=== PATIENT | female | born 1975 | race Caucasian/White ===

== ENCOUNTER 2016-07-01 10:36 | Emergency (ER) | payer OTHER ==
[~2016-07-01] VITALS: Ht 167.6 cm; Wt 91.0 kg
[2016-07-01] MEDS ORDERED: SODIUM CHLORIDE FLUSH 10 ML SYR IV PRN (11:10)
[2016-07-01] MEDS ORDERED: SODIUM CHLORIDE FLUSH 3 ML SYR IV PRN (11:10)
[2016-07-01] MEDS ORDERED: ASPIRIN 81 MG CHEW (CHILDREN'S ASA) PO ONE (11:10)
[2016-07-01] MEDS: NITROGLYCERIN SUBLINGUAL 0.4 MG (NITROQUICK) TABLET SL PRN ×2 (11:13→11:37)
[2016-07-01 11:17] LABS: BASOPHILS % (AUTO) 1 % (0-2); EOSINOPHILS # (AUTO) 0.1 10^3uL; EOSINOPHILS % (AUTO) 1 % (0-4); LYMPHOCYTES # (AUTO) 3.1 X10^3; MEAN CORPUSCULAR VOLUME 90 FL (80-100); MEAN PLATELET VOLUME 10.1 FL (6.0-9.5); MONOCYTES # (AUTO) 0.7 X10^3; MONOCYTES % (AUTO) 6 % (3-11); NEUTROPHILS % (AUTO) 64 % (51-67); PLATELET COUNT 247 10^3uL (150-450); WHITE BLOOD COUNT 10.95 10^3uL (4.0-11.0)
[2016-07-01 11:21] LABS: MEAN CORPUSCULAR HEMOGLOBIN 31.7 PG (26.0-34.0)
[2016-07-01 11:30] LABS: ALBUMIN 4.2 g/dL (3.4-5.0); ALKALINE PHOSPHATASE 76 U/L (38-126); ANION GAP 11.6 MEQ/L (3-15); BUN/CREATININE RATIO 14 (10-20); CALCULATED IONIZED CALCIUM 4.4 mg/dL (3.8-4.6); TOTAL PROTEIN 7.2 g/dL (6.4-8.5)
--- NOTE | 2016-07-01 11:34 | NUR ---
Pt states 6/10 chest pain. MD notified.
[2016-07-01] MEDS ORDERED: NS IV 500 ML 500 ML ONE (11:44)
[2016-07-01] MEDS ORDERED: NS IV 500 ML 500 ML IV SCH (11:45)
--- NOTE | 2016-07-01 11:53 | NUR ---
1138 nitro given 1142 bp 99/62, fluid bolus 500ml started
--- NOTE | 2016-07-01 11:58 | NUR ---
Nitro given. BP 108/55, wanted final dose of nitro. pain 06/16.
[2016-07-01] MEDS ORDERED: GI COCKTAIL 55 ML UDC PO ONE (12:40)
[2016-07-01] MEDS ORDERED: BELLADONNA/PHENOBARBITAL ELIXIR (DONNATAL) 10 ML UDC ONE (12:48)
[2016-07-01] MEDS ORDERED: MAG HYDROX/AL HYDROX/SIMETH 400-400-40/5 ML (MAG-AL PLUS XS) 30 ML UDC ONE (12:48)
[2016-07-01] MEDS ORDERED: LIDOCAINE 2% VISCOUS 20ML UDC PO ONE (12:48)
[2016-07-01 14:26] VITALS: BP 91/59
== END 2016-07-01 14:27 | disposition home or self-care (01) ==
LOC: ED 10:38
DX: R07.9 Chest pain, unspecified (principal); R10.13 Epigastric pain
CPT/HCPCS: 36415; 71010; 80053; 84484; 85025; 85610; 85730; 93005; 99285; J7040; 93010; 96360; 99284

== ENCOUNTER 2016-07-05 12:15 | Emergency (ER) | payer OTHER ==
[~2016-07-05] VITALS: Ht 167.6 cm; Wt 91.0 kg
--- OUTSIDE RECORDS SUMMARY | 2016-07-05 12:18 | XMS REPORT | Continuity of Care Document ---
Author Author [facility] Address Unknown Phone Unavailable Care Team Providers Care Home Sales Service Professional Name Role Phone CAMERON RICE PCP [phone] Insurance Providers Payer Name Policy Number Subscriber Name Relationship [employer] [id number] Cristal Gu 18 Self / Same As Patient Advance Directives Directive Response Recorded Date/Time Advanced Directives No 07/01/16 10:44am Chief Complaint and Reason for Visit Chief Complaint Cardiac Complaint Reason for Visit Dyspepsia Chest discomfort Problems Active Problems Medical Problem Onset Date Status Chest discomfort Unknown Acute Diarrhea ~02/01/2015 Acute Dyspepsia Unknown Acute Injury of toe ~12/07/2013 Acute Ovarian cyst Unknown Acute Toe injury ~12/07/2013 Acute Medications Current Home Medications Medication Dose Units Route Directions Days/Qty Instructions Start Date Simvastatin (Zocor) 20 Mg 1 Tab ORAL Bedtime 07/01/16 Sertraline Hcl 100 Mg 1 Tab ORAL Bedtime 90 07/01/16 Duloxetine Hcl 60 Mg 1 Cap ORAL Daily 07/01/16 Cholecalciferol (Vitamin D3) 5,000 Unit 5,000 Unit ORAL Daily Past Home Medications Medication Directions Ordered Status Buspirone Hcl (Buspar) 10 Mg Tablet, 10 Mg Oral Twice A Day 12/07/13 Discontinued Citalopram Hydrobromide (Celexa) 40 Mg Tablet, 100 Mg Oral Daily 12/07/13 Discontinued Ciprofloxacin 500 Mg Tablet, 500 Mg Oral Twice A Day 02/01/15 Discontinued Social History Query Response Start Date Stop Date Smoking Status Current every day smoker Hospital Discharge Instructions No hospital discharge instructions. Plan of Care Discharge Date 07/01/16 2:27pm Disposition 01 HOME OR SELF-CARE Condition at Discharge Stable Instructions/Education Provided Acid Reflux (Gastroesophageal Reflux Disease) , Adult (DC) Chest Pain (DC) Prescriptions See Medication Section Referrals CAMERON RICE - Additional Instructions/Education Prilosec OTC 20 mg daily. Follow-up with PCP next week. return to ER if worsens. continue routine medications as prescribed. Stop smoking Some of your test results may not be complete prior to your leaving the Emergency Department. The Emergency Department is not authorized to give test results over the phone. Please contact the doctor's office listed in this packet of information for your final results. Follow up with your primary care physician or return to the Emergency Department for worsening or worrisome symptoms. * Emergency Department phone number: [phone], x [phone]* MEDICAL RECORD If you need copies of your X-rays, call [phone]. If you need copies of your medical record, including lab results, a signed authorization for release of records will be required. A telephone call for release of Health Information is not allowed. BILLING Billing can sometimes be confusing and frustrating. To help avoid confusion in the future, please take a moment to acquaint yourself with the billing parties for services. SERVICE BILLING LIBERTARIAN Emergency Room Services [facility] Physician Services [facility] X-rays [place] [facility] Patients will receive bills for services from the appropriate provider. If you have any questions about your [facility] bill, our staff will be happy to assist you. Please call [phone], and ask for the billing department. THANK YOU for choosing [facility] as your emergency care provider! Care Plan and Goals ~~Discharge Care Plan~~ Problem: Chest, epigastric or chest wall pain Goal: Decreased pain Instructions: Take medication(s) as directed. Follow home discharge instructions. Follow up with primary care physician or environmental protection officer as directed. Functional Status No functional status results. Allergies, Adverse Reactions, Alerts No known allergies. Immunizations Name Given Type Status Date Influenza Vaccine Received if Current 02/15/15 Historical Historical Vital Signs Acute Vital Signs Vital Response Date/Time Temperature (Fahrenheit) 98.6 07/01/2016 2:26pm Pulse 73 bpm 07/01/2016 2:26pm Respirations 16 07/01/2016 2:26pm Height 5 ft 6 in Weight 200 lb Body Mass Index 32.0 kg/m^2 Results Laboratory Results Test Name Result Units Flags Reference Collection Date/Time Result Date/ Time Comments White Blood Count 10.95 10^3uL 4.0-11.0 07/01/2016 11:05am 07/01/2016 11:22am Red Blood Count 4.58 10^6uL 4.00-5.00 07/01/2016 11:05am 07/01/2016 11: 22am Hemoglobin 14.5 g/dL 12.0-15.5 07/01/2016 11:05am 07/01/2016 11:22am Hematocrit 41.40 % 35.00-45.00 07/01/2016 11:05am 07/01/2016 11:22am Mean Corpuscular Volume 90 FL 80-100 07/01/2016 11:05am 07/01/2016 11: 22am Mean Corpuscular Hemoglobin 31.7 PG 26.0-34.0 07/01/2016 11:05am 2016 11:22am Mean Corpuscular Hemoglobin Concent 35.0 g/dL 31.0-37.0 07/01/2016 11: 05am 07/01/2016 11:22am Red Cell Distribution Width 12.6 % 11.8-15.6 07/01/2016 11:05am 2016 11:22am Platelet Count 247 10^3uL 150-450 07/01/2016 11:05am 07/01/2016 11: 22am Mean Platelet Volume 10.1 FL H 6.0-9.5 07/01/2016 11:05am 07/01/2016 11: 22am Neutrophils (%) (Auto) 64 % 51-67 07/01/2016 11:05am 07/01/2016 11: 22am Lymphocytes (%) (Auto) 28 % 20-46 07/01/2016 11:05am 07/01/2016 11: 22am Monocytes (%) (Auto) 6 % 3-11 07/01/2016 11:05am 07/01/2016 11:22am Eosinophils (%) (Auto) 1 % 0-4 07/01/2016 11:05am 07/01/2016 11:22am Basophils (%) (Auto) 1 % 0-2 07/01/2016 11:05am 07/01/2016 11:22am Neutrophils # (Auto) 7.0 X10^3 07/01/2016 11:05am 07/01/2016 11:22am Lymphocytes # (Auto) 3.1 X10^3 07/01/2016 11:05am 07/01/2016 11:22am Monocytes # (Auto) 0.7 X10^3 07/01/2016 11:05am 07/01/2016 11:22am Eosinophils # (Auto) 0.1 10^3uL 07/01/2016 11:05am 07/01/2016 11: 22am Basophils # (Auto) 0.1 10^3uL 07/01/2016 11:05am 07/01/2016 11:22am Prothrombin Time 11.0 SEC 10.0-12.5 07/01/2016 11:05am 07/01/2016 11: 30am Prothromb Time International Ratio 1.0 0.8-1.4 07/01/2016 11:05am 11:30am Activated Partial Thromboplast Time 30.7 SEC 26.3-36.8 07/01/2016 11: 05am 07/01/2016 11:30am Sodium Level 138 mmol/L 135-150 07/01/2016 11:05am 07/01/2016 11:31am Potassium Level 3.5 mmol/L 3.5-5.1 07/01/2016 11:05am 07/01/2016 11: 31am Chloride Level 105 mmol/L 98-108 07/01/2016 11:05am 07/01/2016 11:31am Carbon Dioxide Level 24 mmol/L 22-29 07/01/2016 11:0507/01/2016 11: 31am Anion Gap 11.6 MEQ/L 3-15 07/01/2016 11:0507/01/2016 11:31am Blood Urea Nitrogen 9 mg/dL 7-18 07/01/2016 11:0507/01/2016 11:31am Creatinine 0.63 mg/dL 0.6-1.2 07/01/2016 11:0507/01/2016 11:31am BUN/Creatinine Ratio 14 10-20 07/01/2016 11:0507/01/2016 11:31am Estimat Glomerular Filtration Rate 126.6 07/01/2016 11:052016 11:31am Estimated GFR (Non- 104.7 07/01/2016 11:052016 11:31am Glucose Level 103 mg/dL 70-110 07/01/2016 11:0507/01/2016 11:31am Calculated Osmolality 265 mosm/L L 280-300 07/01/2016 11:052016 11:31am Calcium Level 10.0 mg/dL 8.8-10.8 07/01/2016 11:0507/01/2016 11: 31am Calcium/Ionized Calcium Ratio 4.4 mg/dL 3.8-4.6 07/01/2016 11:05 11:31am Total Bilirubin 0.6 mg/dL # 0.1-1.0 07/01/2016 11:0507/01/2016 11: 31am Alkaline Phosphatase 76 U/L 38-126 07/01/2016 11:0507/01/2016 11: 31am Aspartate Amino Transf (AST/SGOT) 29 U/L 15-37 07/01/2016 11:0507/01 11:31am Alanine Aminotransferase (ALT/SGPT) 51 U/L 30-65 07/01/2016 11:05 11:31am Troponin I < 0.012 ng/mL 0.010-0.080 07/01/2016 1:25pm 07/01/2016 1: 50pm Total Protein 7.2 g/dL 6.4-8.5 07/01/2016 11:05am 07/01/2016 11:31am Albumin 4.2 g/dL 3.4-5.0 07/01/2016 11:05am 07/01/2016 11:31am Albumin/Globulin Ratio 1.400 1.1-1.8 07/01/2016 11:05am 07/01/2016 11 :31am Procedures No known history of procedures. Encounters Encounter Location Arrival/Admit Date Discharge/Depart Date Attending Provider Departed Emergency Room [facility] 07/01/16 10:38am 07/01/16 2:27pm PIEDAD KUMAR MD Recent Diagnosis
[2016-07-05] MEDS ORDERED: SODIUM CHLORIDE FLUSH 10 ML SYR IV PRN (12:50)
[2016-07-05] MEDS: NITROGLYCERIN SUBLINGUAL 0.4 MG (NITROQUICK) TABLET SL PRN ×2 (13:03→14:37)
--- NOTE | 2016-07-05 13:10 | NUR ---
PT BP DROPS BELOW 100 SYST[address] & AFTER DR PRUETT NOTIFIED, NS RATE CHGED TO 999 PER VERBAL ORDER TO SUSTAIN BP > 100 SYSTOLIC. CL
--- NOTE | 2016-07-05 13:23 | Diagnostic Imaging Report ---
INDICATION: Chest pain Portable upright view of the chest is obtained with comparison made to the study of 07/01/2016. FINDINGS: Heart size and pulmonary vascularity are within normal limits, and the lungs are clear, bilaterally. IMPRESSION: Unremarkable chest. Dictated by: Dictated on workstation # [id number]
--- NOTE | 2016-07-05 13:23 | NUR ---
DR FLOYD CALLED BY DR PRUETT RE POSS PT TSF TO [facility] & GETS ACCEPTANCE. CL
--- NOTE | 2016-07-05 13:23 | NUR ---
Rico lindquist in ED - 07/05/16 at [id number] FLOYD CALLED BY DR FLYNN SHEEHAN POSS PT TSF TO [facility] & GETS ACCEPTANCE. CL
--- NOTE | 2016-07-05 13:55 | Diagnostic Imaging Report ---
PROCEDURE: CT angiography of the chest with contrast. TECHNIQUE: Multiple contiguous axial images were obtained through the chest after uneventful bolus administration of intravenous contrast. Reconstructed CTA MIP acquisitions were also performed. INDICATION: Chest pain No priors. There are no intraluminal pulmonary arterial filling defects. There are no findings of pulmonary arterial embolus. The thoracic aorta is patent and nonaneurysmal. No dissection, mural hemorrhage or a rupture. Pericardium and pleura appeared normal. No focal consolidation. No suspicious lung mass. No thoracic adenopathy. No acute soft tissue or osseous chest wall pathology. Visualized upper abdomen nonacute. IMPRESSION: Negative for PE or other acute abnormalities. Dictated by: Dictated on workstation # [id number]
--- NOTE | 2016-07-05 14:30 | NUR ---
pPT REPORTS PAIN A LITTLE BETTER AT 5/10 FEELING LIKE A PRESSURE SITTING ON HER CHEST. HUSB AT BEDSIDE. DR PRUETT NOTIFIED & A 2ND NITRO ORDERED. PT BP 99 SYSTOLIC. ORDERS IV FLUIDS WIDE OPEN. WITH NITRO. CL
--- NOTE | 2016-07-05 14:32 | NUR ---
Jesus Manuel DIXON ROUNDS ON PT W/HUSB AT BEDSIDE. PT REPORTS SHE IS HAPPY WITH HER CARE & MD TODAY. CL
[2016-07-05] MEDS ORDERED: morphine INJ 2 MG/ML 1 ML SYRINGE ONE (14:51)
--- NOTE | 2016-07-05 14:52 | NUR ---
PT STATES PAIN NOW 06/16 BUT HER HEAD "IS KILLING ME". DR PRUETT NOTIFIED & PT DUE TO HAVE NITRO #[address] PRUETT STATES TO GIVE MS 2MG INSTEAD. CL
[2016-07-05] MEDS ORDERED: morphine INJ 2 MG/ML 1 ML SYRINGE IV PRN (15:00)
[2016-07-05] MEDS ORDERED: NITROGLYCERIN 2% OINTMENT (NITRO-BID) 1 GM UNIT DOSE PACKET TOP ONE ×2 (15:08→15:10)
--- NOTE | 2016-07-05 15:09 | NUR ---
[facility] GIVES VERBAL ORDER FOR NITROPASTE 0.5 INCH AT THIS TIME. CL
[2016-07-05] MEDS ORDERED: NITROGLYCERIN 2% OINTMENT (NITRO-BID) 1 GM UNIT DOSE PACKET TOP PRN (15:10)
--- NOTE | 2016-07-05 15:30 | NUR ---
PT NS RATE CHGD TO 500CC/HR WHEN PT BP REMAINS >100 SYSTOLIC. CL
[2016-07-05 18:53] VITALS: BP 122/75
== END 2016-07-05 16:25 | disposition short-term general hospital (02) ==
LOC: ED 12:16
DX: R07.89 Other chest pain (principal); F17.210 Nicotine dependence, cigarettes, uncomplicated
CPT/HCPCS: 36415; 71010; 71275; 84484; 93005; 96361; 96374; 99285; J2270; J7030; Q9967; 93010

== ENCOUNTER → 2016-07-05 | Outpatient (CLI) | payer OTHER ==
[~2016-07-05] MED LIST: BUSP10TA95 PO; CALC-250 PO; CITA40TA5 PO; CPR500T PO; DULO60CA58 PO; SERT100T8 PO; SMV20T PO
== END ==
LOC: EMS 16:30
PROVIDERS: ATTEND Internal Medicine Cardiovascular Disease
DX: R07.89 Other chest pain (principal)